=== PATIENT | female | born 1965 | race Caucasian/White ===

== ENCOUNTER 2017-06-30 10:09 | Emergency (ER) | payer OTHER ==
[~2017-06-30 10:09] MED LIST: CEPH-460 PO; CYCL10TA PO
[2017-06-30 10:24] VITALS: BP 124/69; PULSE 96; RESP 16; TEMP 98.5; O2SAT 97
[2017-06-30 11:20] LABS: AMORPHOUS SEDIMENT, URINE FEW; BACTERIA, URINE OCC /hpf; BILIRUBIN, URINE NEG (NEG); BLOOD, URINE NEG (NEG); GLUCOSE,URINE NEG (NEG); KETONE, URINE NEG (NEG); MUCUS URINE FEW /lpf (OCC); NITRITE,URINE NEG (NEG); SQUAMOUS EPITHELIAL CELL URINE 1 /hpf (0-5); URINE COLOR YELLOW (YELLW/STRAW); URINE LEUKOCYTE ESTERASE LARGE (NEG)
--- NOTE | 2017-06-30 11:30 | PD ---
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 Patient states she was treated for UTI possibly 1 month ago, but did not complete the antibiotics as they were "stolen from her". She denies sexual activity in the last month. She denies as she has had hysterectomy. She denies nausea, vomiting, or diarrhea. She denies flank pain. Patient states the pain in vaginal discharge is worsened in the last 3 days. She states it is burning and itching as well. Pain is currently 7 out of 10. She is allergic to amitriptyline, mirtazapine, and sertraline. PFSH Past Medical History Hx Anticoagulant Therapy: No Anxiety: Yes (PTSD) Depression: Yes Cardiovascular Problems: Yes (ANGINA ) Chest Pain: Yes Cerebrovascular Accident: Yes Diabetes: No Diminished Hearing: No Hepatitis: Yes (Hep C) Hypertension: Yes Kidney Stones: Yes Musculoskeletal: Yes (6 herniated disks) Psychiatric: Yes (PTSD) Reproductive: Yes (discharge and painful sexual intercourse) Respiratory: No Immunizations Current: Yes Schizophrenia: Yes (schizo-affective) Tetanus Vaccination: < 5 Years Influenza Vaccination: Yes ?: Not Menopausal: Yes : 3 Para: 1 Miscarriage: 1 : 1 Past Surgical History Abdominal Surgery: Yes (HERNIA X 3) Cholecystectomy: Yes Genitourinary Surgery: Yes (KIDNEY STONES) Gynecologic Surgery: Yes Hysterectomy: Yes (possible partial hysterectomy, patient is unsure) Other Surgery: Yes Social History Alcohol Use: No Tobacco Use: Yes (1PPD) Substance Use: Yes (morphine pills, CRACK, COCAINE, HEROINE) Allergies-Medications (Allergen,Severity, Reaction): Coded Allergies: amitriptyline (Unverified Allergy, Severe, TONGUE SWELLS, 06/30/17) sertraline (Unverified Allergy, Severe, TOUNGE SWELLING, 06/30/17) mirtazapine (Verified Allergy, Mild, Anaphylaxis, 06/30/17) Reported Meds & Prescriptions Reported Meds & Active Scripts Active No Active Prescriptions or Reported Medications Review of Systems Except as stated in HPI: all other systems reviewed are Neg General / Constitutional: No: Fever, Chills Eyes: No: Visual changes HENT: No: Headaches Cardiovascular: No: Chest Pain or Discomfort Respiratory: No: Shortness of Breath Gastrointestinal: No: Nausea, Vomiting, Diarrhea, Abdominal Pain Genitourinary: Positive: Urgency, Frequency, Dysuria, Pelvic Pain, Discharge, No: Vaginal Bleeding Musculoskeletal: No: Pain Skin: No Rash Neurologic: No: Weakness Psychiatric: No: Depression Endocrine: No: Polydipsia Hematologic/Lymphatic: No: Easy Bruising Physical Exam Narrative GENERAL: Patient appears in no obvious distress. SKIN: Warm and dry. Normal color. Normal turgor. No rash. HEAD: Atraumatic. Normocephalic. EYES: Pupils equal and round. No scleral icterus. No injection or drainage. ENT: No nasal bleeding or discharge. Mucous membranes pink and moist. Pharynx is clear. Airways patent NECK: Trachea midline. Supple CARDIOVASCULAR: Regular rate and rhythm. RESPIRATORY: No accessory muscle use. Clear to auscultation. Breath sounds equal bilaterally. GASTROINTESTINAL: Abdomen soft, mild nonspecific suprapubic tenderness, nondistended. No CVA tenderness. Hepatic and splenic margins not palpable. GENITAL/PELVIC: Pelvic exam shows no obvious lesions in the perineum or labia. Pelvic exam shows small amount of yellowish green discharge noted. Wet prep was sent to the lab. There is no bleeding or friable tissue. Pelvic exam performed with nursing staff present for fire engineer. MUSCULOSKELETAL: Extremities without clubbing, cyanosis, or edema. No obvious deformities. NEUROLOGICAL: Awake and alert. No obvious cranial nerve deficits. Motor grossly within normal limits. Five out of 5 muscle strength in the arms and legs. Normal speech. PSYCHIATRIC: Appropriate mood and affect; insight and judgment normal. Data Data Last Documented VS Vital Signs Date Time Temp Pulse Resp B/P (MAP) Pulse Ox O2 Delivery O2 Flow Rate FiO2 06/30/17 10:24 98.5 96 16 124/69 (87) 97 Orders Orders Urinalysis - C+S If Indicated (06/30/17 10:27) Gc And Chlamydia Pcr (06/30/17 10:27) Urine Culture (06/30/17 10:30) Wet Prep Profile (06/30/17 11:45) Iv Access Insert/Monitor (06/30/17 11:45) Ecg Monitoring (06/30/17 11:45) Ceftriaxone Inj (Rocephin Inj) (06/30/17 11:45) Azithromycin Powd Pack (Zithromax Powd P (06/30/17 11:45) Sodium Chlor 0.9% 1000 Ml Inj (Ns 1000 M (06/30/17 11:45) Ondansetron Inj (Zofran Inj) (06/30/17 11:45) Metronidazole (Flagyl) (06/30/17 11:45) Labs Laboratory Tests Test 06/30/17 10:30 06/30/17 11:37 Urine Color YELLOW Urine Turbidity CLOUDY Urine pH 8.0 Urine Specific [place] 1.018 Urine Protein TRACE mg/dL Urine Glucose (UA) NEG mg/dL Urine Ketones NEG mg/dL Urine Occult Blood NEG Urine Nitrite NEG Urine Bilirubin NEG Urine Urobilinogen LESS THAN 2.0 MG/DL Urine Leukocyte Esterase LARGE Urine RBC 17 /hpf Urine WBC 85 /hpf Urine Squamous Epithelial Cells 1 /hpf Urine Amorphous Sediment FEW Urine Bacteria OCC /hpf Urine Mucus FEW /lpf Microscopic Urinalysis Comment CULTURE INDICATED Clue Cells (Wet Prep) NONE SEEN Vaginal Trichomonas (Wet Prep) PRESENT Vaginal Yeast (Wet Prep) NONE SEEN MDM Medical Decision Making Medical Screen Exam Complete: Yes Emergency Medical Condition: Yes Medical Record Reviewed: Yes Differential Diagnosis Urinary tract infection. Trichomonas. STD. GC chlamydia. Narrative Course Patient appears medically stable at time of exam. Urinalysis is ordered in triage, as well as GC chlamydia. Wet prep was sent to the lab. Urinalysis shows large leukocyte esterase with 85 WBCs per high-power field, occasional bacteria. Urine culture is placed. Wet prep shows no clue cells, no yeast, but positive trichomonas. Chlamydia and gonorrhea is pending. Patient is treated with 1000 mg Rocephin IV, 2 g of azithromycin p.o., and 2 g metronidazole p.o. patient is given Zofran 4 mg IV as well. Patient will be continued on Cipro 500 mg twice daily 7 days for her urinary tract infection Patient should have her sexual partner treated for trichomonas. Patient should follow-up with local CORRECTION OFFICER to ensure clearance. Diagnosis Primary Impression: Trichomoniasis of vagina Additional Impression: Urinary tract infection Qualified Codes: N30.00 - Acute cystitis without hematuria Referrals: [facility] call for appointment Patient Instructions: Dysuria (ED), General Instructions, Trichomoniasis (ED) Additional Instructions: Wet prep shows no clue cells, no yeast, but positive trichomonas. Chlamydia and gonorrhea is pending. Patient is treated with 1000 mg Rocephin IV, 2 g of azithromycin p.o., and 2 g metronidazole p.o. patient is given Zofran 4 mg IV as well. Patient will be continued on Cipro 500 mg twice daily 7 days for her urinary tract infection Patient should have her sexual partner treated for trichomonas. Patient should follow-up with local CORRECTION OFFICER to ensure clearance. Med/Other Pt SpecificInfo: Prescription(s) given Scripts No Active Prescriptions or Reported Meds Disposition: 01 DISCHARGE HOME Condition: Stable Rogerio Duval Jun 30, 2017 11:30
[2017-06-30] MEDS ORDERED: AZITHROMYCIN PWD FOR SUSP 1 GM PACKET PO ONE (11:45)
[2017-06-30] MEDS ORDERED: ONDANSETRON HCL 4 MG/2 ML VIAL IVP ONE (11:45)
[2017-06-30] MEDS ORDERED: SODIUM CHLOR 0.9% 1000 ML INJ 1,000 ML IV ONE (11:45)
[2017-06-30] MEDS ORDERED: cefTRIAXone INJ 1,000 MG in SODIUM CHLORIDE 0.9% INJ 100 ML IV ONE (11:45)
[2017-06-30] MEDS ORDERED: metroNIDAZOLE 500 MG TAB PO ONE (11:45)
[2017-06-30] MEDS ORDERED: CIPR-9 PO (13:19)
== END 2017-06-30 13:33 | disposition home or self-care (01) ==
LOC: NEPD 10:09
DX: A59.01 Trichomonal vulvovaginitis (principal); N39.0 Urinary tract infection, site not specified; F41.9 Anxiety disorder, unspecified; F43.10 Post-traumatic stress disorder, unspecified; I10 Essential (primary) hypertension; F25.9 Schizoaffective disorder, unspecified; Z86.73 Personal history of transient ischemic attack (TIA), and cerebral infarction without residual deficits; Z86.19 Personal history of other infectious and parasitic diseases; Z87.442 Personal history of urinary calculi
CPT/HCPCS: 81001; 87086; 87210; 87491; 87591; 96365; 96375; 99284; J0696; J2405; J7030

== ENCOUNTER 2017-08-06 09:22 | Emergency (ER) | payer OTHER ==
[~2017-08-06] VITALS: Ht 160 cm; Wt 82.0 kg
[~2017-08-06 09:22] MED LIST changes: -CEPH-460 PO; +CIPR-9 PO; -CYCL10TA PO
[2017-08-06 09:35] VITALS: BP 145/73; PULSE 107; RESP 20; TEMP 98.3; O2SAT 97
[2017-08-06] MEDS ORDERED: NAPR250T4 PO (09:40)
[2017-08-06] MEDS ORDERED: [UNRECOGNIZED DRUG - REMARK] (09:40)
[2017-08-06] MEDS ORDERED: LORazepam 2 MG/ML VIAL IV PUSH ONE (10:15)
[2017-08-06] MEDS ORDERED: SODIUM CHLORID 0.9% 500 ML INJ 500 ML IV ONE (10:15)
[2017-08-06] MEDS ORDERED: SODIUM CHLORIDE 0.9% FLUSH 10 ML FLUSH IVF PRN (10:15)
[2017-08-06] MEDS ORDERED: ASPIRIN 81 MG CHEW TAB PO ONE (10:15)
--- NOTE | 2017-08-06 10:17 | PD ---
HPI Chief Complaint: Cardiac Complaint Time Seen by Provider: 09:34 Travel History International Travel<30 days: No Contact w/Intl Traveler<30days: No Traveled to known affect area: No History of Present Illness HPI The patient is a 52-year-old female who presents to the emergency department via EMS for chest pain and palpitations after smoking crack cocaine. The patient states she head 1 week of generalized malaise, fatigue, with inability to get out of the bed. The patient states she thought it might be a good idea to use crack cocaine to give her some energy. The patient states she smoked crack cocaine last night at 2 AM in a hotel room. The patient did develop palpitations, anxiety, and neck and jaw pain. She does have a history of previous crack cocaine abuse. She does state she smokes the crack cocaine, there is no IV drug abuse. The patient currently complains of intermittent chest palpitations and fluttering of the heart. She denies any acute chest pain , does note intermittent shortness of breath and mostly dry nonproductive cough. She does have a history of tobacco use. Symptoms are moderate, exacerbated after smoking crack cocaine. PFSH Past Medical History Hx Anticoagulant Therapy: No Anxiety: Yes (PTSD) Depression: Yes Cardiovascular Problems: Yes ( ) Chest Pain: Yes Cerebrovascular Accident: Yes Diabetes: No Diminished Hearing: No Hepatitis: Yes (Hep C) Hypertension: Yes Kidney Stones: Yes Musculoskeletal: Yes (6 herniated disks) Psychiatric: Yes (PTSD) Respiratory: No Immunizations Current: Yes Schizophrenia: Yes (schizo-affective) ?: Not Menopausal: Yes : 3 Para: 1 Miscarriage: 1 : 1 Past Surgical History Abdominal Surgery: Yes (HERNIA X 3) Cholecystectomy: Yes Genitourinary Surgery: Yes (KIDNEY STONES) Gynecologic Surgery: Yes Hysterectomy: Yes ( ) Other Surgery: Yes Social History Alcohol Use: No Tobacco Use: Yes (1PPD) Substance Use: Yes (cocaine) Allergies-Medications (Allergen,Severity, Reaction): Coded Allergies: amitriptyline (Unverified Allergy, Severe, TONGUE SWELLS, 06/30/17) sertraline (Unverified Allergy, Severe, TOUNGE SWELLING, 06/30/17) mirtazapine (Verified Allergy, Mild, Anaphylaxis, 06/30/17) Reported Meds & Prescriptions Reported Meds & Active Scripts Active Reported [unk depression med] BID Naproxen 250 Mg Tab 250 Mg PO BID Review of Systems Except as stated in HPI: all other systems reviewed are Neg General / Constitutional: No: Fever HENT: No: Lightheadedness Cardiovascular: Positive: Palpitations, Tachycardia, No: Chest Pain or Discomfort, Diaphoresis Respiratory: Positive: Cough, Shortness of Breath Gastrointestinal: No: Nausea, Vomiting Genitourinary: Positive: Dysuria Musculoskeletal: Positive: Weakness Neurologic: Positive: Weakness, No: Dizziness Psychiatric: Positive: Depression, Substance Abuse, Other (PTSD) Physical Exam Narrative GENERAL: Awake, alert, 52-year-old female who appears her stated age and is in no acute respiratory distress. SKIN: Focused skin assessment warm/dry. HEAD: Atraumatic. Normocephalic. EYES: Pupils equal and round. No scleral icterus. No injection or drainage. ENT: No nasal bleeding or discharge. No upper teeth visible. NECK: Trachea midline. No JVD. CARDIOVASCULAR: Regular rate and rhythm. No murmur appreciated. Heart rate in the 90s. RESPIRATORY: No accessory muscle use. Scattered wheezes. GASTROINTESTINAL: Abdomen soft, non-tender, nondistended. No rebound tenderness. MUSCULOSKELETAL: No obvious deformities. No clubbing. No cyanosis. No edema. NEUROLOGICAL: Awake and alert. No obvious cranial nerve deficits. Motor grossly within normal limits. Normal speech. Nonfocal. PSYCHIATRIC: Appropriate mood and affect; insight and judgment normal. Data Data Last Documented VS Vital Signs Date Time Temp Pulse Resp B/P (MAP) Pulse Ox O2 Delivery O2 Flow Rate FiO2 08/06/17 11:24 96 Room Air 08/06/17 11:23 77 20 118/64 (82) 08/06/17 09:35 98.3 Orders Orders Electrocardiogram (08/06/17 10:14) Ckmb (Isoenzyme) Profile (08/06/17 10:14) Complete Blood Count With Diff (08/06/17 10:14) Comprehensive Metabolic Panel (08/06/17 10:14) Magnesium (Mg) (08/06/17 10:14) Prothrombin Time / Inr (Pt) (08/06/17 10:14) Act Partial Throm Time (Ptt) (08/06/17 10:14) Troponin I (08/06/17 10:14) Lipase (08/06/17 10:14) Ecg Monitoring (08/06/17 10:14) Bilateral Bp Monitoring (08/06/17 10:14) Iv Access Insert/Monitor (08/06/17 10:14) Oximetry (08/06/17 10:14) Oxygen Administration (08/06/17 10:14) Aspirin Chew (Aspirin Chew) (08/06/17 10:15) Sodium Chloride 0.9% Flush (Ns Flush) (08/06/17 10:15) Sodium Chlorid 0.9% 500 Ml Inj (Ns 500 M (08/06/17 10:15) Chest, Pa & Lat (08/06/17 10:14) Lorazepam Inj (Ativan Inj) (08/06/17 10:15) Urinalysis - C+S If Indicated (08/06/17 10:17) Ceftriaxone Inj (Rocephin Inj) (08/06/17 11:30) Azithromycin (Zithromax) (08/06/17 11:30) Troponin I (08/06/17 13:30) Labs Laboratory Tests Test 08/06/17 10:30 08/06/17 13:15 White Blood Count 15.8 TH/MM3 Red Blood Count 4.62 MIL/MM3 Hemoglobin 14.6 GM/DL Hematocrit 40.4 % Mean Corpuscular Volume 87.3 FL Mean Corpuscular Hemoglobin 31.5 PG Mean Corpuscular Hemoglobin Concent 36.1 % Red Cell Distribution Width 12.9 % Platelet Count 207 TH/MM3 Mean Platelet Volume 7.1 FL Neutrophils (%) (Auto) 83.0 % Lymphocytes (%) (Auto) 12.6 % Monocytes (%) (Auto) 3.8 % Eosinophils (%) (Auto) 0.3 % Basophils (%) (Auto) 0.3 % Neutrophils # (Auto) 13.1 TH/MM3 Lymphocytes # (Auto) 2.0 TH/MM3 Monocytes # (Auto) 0.6 TH/MM3 Eosinophils # (Auto) 0.0 TH/MM3 Basophils # (Auto) 0.0 TH/MM3 CBC Comment AUTO DIFF Differential Comment AUTO DIFF CONFIRMED Prothrombin Time 10.3 SEC Prothromb Time International Ratio 1.0 RATIO Activated Partial Thromboplast Time 24.0 SEC Urine Color LIGHT-YELLOW Urine Turbidity CLEAR Urine pH 7.0 Urine Specific [place] 1.005 Urine Protein NEG mg/dL Urine Glucose (UA) NEG mg/dL Urine Ketones NEG mg/dL Urine Occult Blood NEG Urine Nitrite NEG Urine Bilirubin NEG Urine Urobilinogen LESS THAN 2.0 MG/DL Urine Leukocyte Esterase LARGE Urine RBC 2 /hpf Urine WBC 7 /hpf Urine Squamous Epithelial Cells 3 /hpf Urine Bacteria RARE /hpf Microscopic Urinalysis Comment CULT NOT INDICATED Blood Urea Nitrogen 17 MG/DL Creatinine 0.79 MG/DL Random Glucose 114 MG/DL Total Protein 7.7 GM/DL Albumin 4.3 GM/DL Calcium Level 9.2 MG/DL Magnesium Level 2.2 MG/DL Alkaline Phosphatase 69 U/L Aspartate Amino Transf (AST/SGOT) 12 U/L Alanine Aminotransferase (ALT/SGPT) 20 U/L Total Bilirubin 0.5 MG/DL Sodium Level 142 MEQ/L Potassium Level 3.8 MEQ/L Chloride Level 108 MEQ/L Carbon Dioxide Level 26.1 MEQ/L Anion Gap 8 MEQ/L Estimat Glomerular Filtration Rate 76 ML/MIN Total Creatine Kinase 86 U/L Troponin I LESS THAN 0.02 NG/ML LESS THAN 0.02 NG/ML Lipase 181 U/L [facility] Medical Decision Making Medical Screen Exam Complete: Yes Emergency Medical Condition: Yes Medical Record Reviewed: Yes Interpretation(s) EKG reveals normal sinus rhythm with a rate 87. No ischemic changes or ectopy noted. Last Impressions Chest X-Ray 08/06/17 1014 Signed Impressions: Service Date/Time: Tuesday, August 06, 2017 10:31 - CONCLUSION: No acute disease. Alpesh Jain MD FACR Laboratory Tests Test 08/06/17 10:30 08/06/17 13:15 White Blood Count 15.8 TH/MM3 Red Blood Count 4.62 MIL/MM3 Hemoglobin 14.6 GM/DL Hematocrit 40.4 % Mean Corpuscular Volume 87.3 FL Mean Corpuscular Hemoglobin 31.5 PG Mean Corpuscular Hemoglobin Concent 36.1 % Red Cell Distribution Width 12.9 % Platelet Count 207 TH/MM3 Mean Platelet Volume 7.1 FL Neutrophils (%) (Auto) 83.0 % Lymphocytes (%) (Auto) 12.6 % Monocytes (%) (Auto) 3.8 % Eosinophils (%) (Auto) 0.3 % Basophils (%) (Auto) 0.3 % Neutrophils # (Auto) 13.1 TH/MM3 Lymphocytes # (Auto) 2.0 TH/MM3 Monocytes # (Auto) 0.6 TH/MM3 Eosinophils # (Auto) 0.0 TH/MM3 Basophils # (Auto) 0.0 TH/MM3 CBC Comment AUTO DIFF Differential Comment AUTO DIFF CONFIRMED Prothrombin Time 10.3 SEC Prothromb Time International Ratio 1.0 RATIO Activated Partial Thromboplast Time 24.0 SEC Urine Color LIGHT-YELLOW Urine Turbidity CLEAR Urine pH 7.0 Urine Specific [place] 1.005 Urine Protein NEG mg/dL Urine Glucose (UA) NEG mg/dL Urine Ketones NEG mg/dL Urine Occult Blood NEG Urine Nitrite NEG Urine Bilirubin NEG Urine Urobilinogen LESS THAN 2.0 MG/DL Urine Leukocyte Esterase LARGE Urine RBC 2 /hpf Urine WBC 7 /hpf Urine Squamous Epithelial Cells 3 /hpf Urine Bacteria RARE /hpf Microscopic Urinalysis Comment CULT NOT INDICATED Blood Urea Nitrogen 17 MG/DL Creatinine 0.79 MG/DL Random Glucose 114 MG/DL Total Protein 7.7 GM/DL Albumin 4.3 GM/DL Calcium Level 9.2 MG/DL Magnesium Level 2.2 MG/DL Alkaline Phosphatase 69 U/L Aspartate Amino Transf (AST/SGOT) 12 U/L Alanine Aminotransferase (ALT/SGPT) 20 U/L Total Bilirubin 0.5 MG/DL Sodium Level 142 MEQ/L Potassium Level 3.8 MEQ/L Chloride Level 108 MEQ/L Carbon Dioxide Level 26.1 MEQ/L Anion Gap 8 MEQ/L Estimat Glomerular Filtration Rate 76 ML/MIN Total Creatine Kinase 86 U/L Troponin I LESS THAN 0.02 NG/ML LESS THAN 0.02 NG/ML Lipase 181 U/L Differential Diagnosis Differential diagnosis includes crack cocaine use, sympathomimetic crisis, ACS, pneumothorax, arrhythmia, palpitations, PTSD, anxiety, bronchitis, pneumonia, pulmonary embolism, electrolyte abnormality. Narrative Course IV was established, labs were drawn and sent, and the patient was placed on cardiac telemetry monitoring and continuous pulse oximetry monitoring. EKG was ordered and interpreted. Chest x-ray was obtained. The patient was administered aspirin 81 mg orally and Ativan 1 mg intravenously with IV fluids. UA was sent to lab. The patient's initial troponin was less than 0.02, therefore, second troponin level was ordered at 3 hour level. Second troponin is less than 0.02. The patient's heart rate came down in the 60s, she appeared to be resting comfortably when I walked in the patient's room she was sleeping comfortably on several different occasions. UA does reveal WBCs and bacteria, patient was administered Rocephin and Zithromax to cover for gonorrhea and chlamydia and will be discharged home on Bactrim twice a day for 3 days. She is advised to follow-up with a primary physician. She is also advised to stop using crack cocaine. Diagnosis Primary Impression: Cocaine abuse Additional Impressions: Palpitations Generalized weakness UTI (urinary tract infection) Qualified Codes: N30.00 - Acute cystitis without hematuria Patient Instructions: General Instructions Additional Instructions: Please provide the patient a copy of her labs at discharge. Medication as directed. Stop using crack cocaine. Med/Other Pt SpecificInfo: Prescription(s) given Scripts Sulfamethoxazole-Trimethoprim (Bactrim DS) 800-160 Mg Tab 1 TAB PO BID for Infection, #6 TAB 0 Refills Prov: Niranjan Payton MD 08/06/17 Disposition: 01 DISCHARGE HOME Condition: Stable Niranjan Payton MD Aug 06, 2017 10:17
--- NOTE | 2017-08-06 10:53 | RADRPT ---
EXAM DATE/TIME: 08/06/2017 10:31 [facility] COMPARISON: No previous studies available for comparison. INDICATIONS : Chest pain and shortness of breath. MEDICAL HISTORY : Cardiovascular disease. SURGICAL HISTORY : None. ENCOUNTER: Initial ACUITY: 1 day PAIN SCORE: 4/10 LOCATION: chest FINDINGS: PA and lateral views of the chest demonstrate the lungs to be symmetrically aerated without evidence of mass, infiltrate or effusion. The cardiomediastinal contours are unremarkable. Osseous structure s are intact. CONCLUSION: No acute disease. Alpesh Jain MD FACR on August 06, 2017 at 10:52 Board Certified Radiologist. This report was verified electronically.
[2017-08-06 10:55] LABS: AUTOMATED NEUTROPHIL # 13.1 TH/MM3 (1.8-7.7); BASOPHIL % 0.3 % (0.0-2.0); EOSINOPHIL % 0.3 % (0.0-4.0); HEMATOCRIT 40.4 % (35.0-46.0); HEMOGLOBIN 14.6 GM/DL (11.6-15.3); LYMPH % 12.6 % (9.0-44.0); MEAN CELL VOLUME 87.3 FL (80.0-100.0); MEAN CORPUSCULAR HEMOGLOBIN 31.5 PG (27.0-34.0); MEAN PLATELET VOLUME 7.1 FL (7.0-11.0); MONO % 3.8 % (0.0-8.0); MONOCYTE # 0.6 TH/MM3 (0-0.9); PLATELET COUNT 207 TH/MM3 (150-450); RED BLOOD COUNT 4.62 MIL/MM3 (4.00-5.30); RED CELL DISTRIBUTION WIDTH 12.9 % (11.6-17.2); WHITE BLOOD COUNT 15.8 TH/MM3 (4.0-11.0)
[2017-08-06 10:57] LABS: MEAN CORPUSCULAR HGB CONC 36.1 % (32.0-36.0)
[2017-08-06 11:04] LABS: PROTHROMBIN TIME - PATIENT 10.3 SEC (9.8-11.6)
[2017-08-06 11:12] LABS: ALBUMIN 4.3 GM/DL (3.4-5.0); ALT (GPT) 20 U/L (10-53); AST (GOT) 12 U/L (15-37); BICARBONATE 26.1 MEQ/L (21.0-32.0); BLOOD UREA NITROGEN 17 MG/DL (7-18); CALCIUM 9.2 MG/DL (8.5-10.1); CHLORIDE 108 MEQ/L (98-107); CREATININE 0.79 MG/DL (0.50-1.00); GLOMERULAR FILTRATION RATE 76 ML/MIN (>89); GLUCOSE,RANDOM 114 MG/DL (74-106); MAGNESIUM 2.2 MG/DL (1.5-2.5); SODIUM (NA) 142 MEQ/L (136-145)
[2017-08-06 11:14] LABS: BACTERIA, URINE RARE /hpf; BILIRUBIN, URINE NEG (NEG); BLOOD, URINE NEG (NEG); GLUCOSE,URINE NEG (NEG); KETONE, URINE NEG (NEG); NITRITE,URINE NEG (NEG); SQUAMOUS EPITHELIAL CELL URINE 3 /hpf (0-5); URINE COLOR LIGHT-YELLOW (YELLW/STRAW); URINE LEUKOCYTE ESTERASE LARGE (NEG)
[2017-08-06 11:16] LABS: ALKALINE PHOSPHATASE 69 U/L (45-117); TOTAL BILIRUBIN ADULT 0.5 MG/DL (0.2-1.0); TOTAL PROTEIN 7.7 GM/DL (6.4-8.2); TROPONIN I LESS THAN 0.02 NG/ML (0.02-0.05)
[2017-08-06 11:23] VITALS: BP 118/64; PULSE 77; RESP 20; O2SAT 95
[2017-08-06] MEDS ORDERED: AZITHROMYCIN 250 MG TAB PO ONE (11:30)
[2017-08-06] MEDS ORDERED: cefTRIAXone INJ 1,000 MG in SODIUM CHLORIDE 0.9% INJ 100 ML IV ONE (11:30)
[2017-08-06] MEDS ORDERED: BACT800T5 PO (14:40)
--- NOTE | 2017-08-06 16:47 | EKG ---
Date Performed: 08/06/2017 Time Performed: 09:46:37 PTAGE: 52 years EKG: Sinus rhythm Since the PREVIOUS TRACING , no significant change noted NORMAL ECG PREVIOUS TRACING 02/11/2016 @ 23.06 DOCTOR: Romana Farias Interpretating Date/Time 08/06/2017 16:45:41
== END 2017-08-06 16:14 | disposition home or self-care (01) ==
LOC: NEPC 09:22
DX: F14.10 Cocaine abuse, uncomplicated (principal); R00.2 Palpitations; R53.1 Weakness; N30.00 Acute cystitis without hematuria; R06.02 Shortness of breath; F17.210 Nicotine dependence, cigarettes, uncomplicated; F32.9 Major depressive disorder, single episode, unspecified; Z79.899 Other long term (current) drug therapy
CPT/HCPCS: 71046; 80053; 81001; 82550; 83690; 83735; 84484; 85025; 85610; 85730; 93005; 96361; 96374; 96375; 99285; J0696; J2060; J7040

== ENCOUNTER 2017-09-14 16:36 | Emergency (ER) | payer OTHER, MEDICAID ==
[~2017-09-14] VITALS: Ht 170.2 cm; Wt 85.0 kg
[~2017-09-14 16:36] MED LIST changes: +BACT800T5 PO; -CIPR-9 PO; +NAPR250T4 PO; +[UNRECOGNIZED DRUG - REMARK]
[2017-09-14 16:40] VITALS: BP 100/60; PULSE 115; RESP 19; TEMP 98.7; O2SAT 96
[2017-09-14] MEDS ORDERED: DULO20 PO (17:09)
[2017-09-14] MEDS ORDERED: SODIUM CHLOR 0.9% 1000 ML INJ 1,000 ML IV SCH (17:19)
--- NOTE | 2017-09-14 17:27 | PD ---
HPI Chief Complaint: GI Complaint Time Seen by Provider: 17:13 Travel History International Travel<30 days: No Contact w/Intl Traveler<30days: No Traveled to known affect area: No History of Present Illness HPI 52-year-old female complains of abdominal pain and diarrhea. Patient states that she started having diarrhea 3 days ago. Patient states that she had mucus in the stool but no blood. Patient states that she is not having cramping pain sharp pain localized to left lower quadrant of the abdomen for the past several days also. Patient denies any pain radiation. Patient denies any nausea vomiting. Patient denies any dysuria frequency. Patient denies any vaginal discharge or bleeding. Patient denies any fever chills. Patient denies any back pain. Patient has history of hypertension, hyperlipidemia. Patient is a smoker. Patient denies any alcohol or illicit drug abuse. Patient has history chronic back pain and has been taking hydrocodone as needed for pain. Patient also has history of PTSD, depression. Patient states that she was walking to postop today and started having bowel incontinence. Patient states that she was near passing out. Patient states that she fell and had abrasion to left knee. PFSH Past Medical History Hx Anticoagulant Therapy: No Anxiety: Yes (PTSD) Depression: Yes Cardiovascular Problems: Yes ( ) Chest Pain: Yes Cerebrovascular Accident: Yes Diabetes: No Diminished Hearing: No Hepatitis: Yes (Hep C) Hypertension: Yes Kidney Stones: Yes Musculoskeletal: Yes (6 herniated disks) Psychiatric: Yes (PTSD) Respiratory: No Immunizations Current: Yes Schizophrenia: Yes (schizo-affective) Tetanus Vaccination: < 5 Years ?: Not Menopausal: Yes : 3 Para: 1 Miscarriage: 1 : 1 Past Surgical History Abdominal Surgery: Yes (HERNIA X 3) Cholecystectomy: Yes Genitourinary Surgery: Yes (KIDNEY STONES) Gynecologic Surgery: Yes Hysterectomy: Yes ( PARTIAL) Other Surgery: Yes Social History Alcohol Use: No Tobacco Use: Yes (1PPD) Substance Use: No (DENIES; HX OF COCAINE USE) Allergies-Medications (Allergen,Severity, Reaction): Coded Allergies: amitriptyline (Unverified Allergy, Severe, TONGUE SWELLS, 09/14/17) olanzapine (Verified Allergy, Severe, Anaphylaxis, 09/14/17) sertraline (Unverified Allergy, Severe, TOUNGE SWELLING, 09/14/17) mirtazapine (Verified Allergy, Mild, Anaphylaxis, 09/14/17) Reported Meds & Prescriptions Reported Meds & Active Scripts Active Reported Cymbalta DR (Duloxetine HCl) 20 Mg Capdr 20 Mg PO DAILY Review of Systems General / Constitutional: No: Fever Eyes: No: Visual changes HENT: No: Headaches Cardiovascular: No: Chest Pain or Discomfort Respiratory: No: Shortness of Breath Gastrointestinal: Positive: Diarrhea, Abdominal Pain Genitourinary: No: Dysuria Musculoskeletal: No: Pain Skin: No Rash Neurologic: No: Weakness Psychiatric: No: Depression Endocrine: No: Polydipsia Hematologic/Lymphatic: No: Easy Bruising Physical Exam Narrative GENERAL: Well-nourished, well-developed patient. SKIN: Focused skin assessment warm/dry. HEAD: Normocephalic. EYES: No scleral icterus. No injection or drainage. NECK: Supple, trachea midline. No JVD or lymphadenopathy. CARDIOVASCULAR: Regular rate and rhythm without murmurs, gallops, or rubs. RESPIRATORY: Breath sounds equal bilaterally. No accessory muscle use. GASTROINTESTINAL: Abdomen soft, nondistended. Patient has moderate tenderness on palpation left lower quadrant of the abdomen. No rebound tenderness. No mass. MUSCULOSKELETAL: No cyanosis, or edema. BACK: Nontender without obvious deformity. No CVA tenderness. Neurologic exam normal. Data Data Last Documented VS Vital Signs Date Time Temp Pulse Resp B/P (MAP) Pulse Ox O2 Delivery O2 Flow Rate FiO2 09/14/17 16:40 98.7 115 19 100/60 (73) 96 Orders Orders Complete Blood Count With Diff (09/14/17 17:19) Comprehensive Metabolic Panel (09/14/17 17:19) Lipase (09/14/17 17:19) Prothrombin Time / Inr (Pt) (09/14/17 17:19) Act Partial Throm Time (Ptt) (09/14/17 17:19) Urinalysis - C+S If Indicated (09/14/17 17:19) Ct Abd/Pel W Iv Contrast(Rout) (09/14/17 17:19) Iv Access Insert/Monitor (09/14/17 17:19) Ecg Monitoring (09/14/17 17:19) Oximetry (09/14/17 17:19) Sodium Chlor 0.9% 1000 Ml Inj (Ns 1000 M (09/14/17 17:19) Sodium Chloride 0.9% Flush (Ns Flush) (09/14/17 17:30) MDM Medical Decision Making Medical Screen Exam Complete: Yes Emergency Medical Condition: Yes Differential Diagnosis Differential diagnosis including gastroenteritis, dehydration, electrolyte imbalance, colitis Narrative Course 52-year-old female with left lower quadrant abdominal pain and diarrhea. Normal saline solution 1 L IV bolus. David Lorenzo MD September 14, 2017 17:27
[2017-09-14] MEDS ORDERED: SODIUM CHLORIDE 0.9% FLUSH 10 ML FLUSH IV FLUSH PRN (17:30)
[2017-09-14] MEDS ORDERED: PRAZ1CAP PO (17:43)
[2017-09-14] MEDS ORDERED: VENTAER INH (17:43)
[2017-09-14] MEDS ORDERED: METR250 PO (17:43)
[2017-09-14] MEDS ORDERED: HYDR-3580 PO (17:43)
[2017-09-14 17:45] VITALS: O2SAT 97
[2017-09-14 17:54] LABS: AUTOMATED NEUTROPHIL # 7.1 TH/MM3 (1.8-7.7); BASOPHIL # 0.1 TH/MM3 (0-0.2); BASOPHIL % 0.6 % (0.0-2.0); EOSINOPHIL # 0.1 TH/MM3 (0-0.4); HEMATOCRIT 40.1 % (35.0-46.0); HEMOGLOBIN 14.3 GM/DL (11.6-15.3); LYMPH % 16.7 % (9.0-44.0); LYMPHOCYTE # 1.6 TH/MM3 (1.0-4.8); MEAN CELL VOLUME 89.7 FL (80.0-100.0); MEAN CORPUSCULAR HEMOGLOBIN 31.9 PG (27.0-34.0); MEAN CORPUSCULAR HGB CONC 35.5 % (32.0-36.0); MEAN PLATELET VOLUME 7.2 FL (7.0-11.0); MONO % 5.7 % (0.0-8.0); MONOCYTE # 0.5 TH/MM3 (0-0.9); PLATELET COUNT 192 TH/MM3 (150-450); RED BLOOD COUNT 4.48 MIL/MM3 (4.00-5.30); RED CELL DISTRIBUTION WIDTH 13.1 % (11.6-17.2); WHITE BLOOD COUNT 9.3 TH/MM3 (4.0-11.0)
[2017-09-14 18:05] LABS: ALKALINE PHOSPHATASE 72 U/L (45-117); TOTAL BILIRUBIN ADULT 0.3 MG/DL (0.2-1.0)
[2017-09-14 18:07] LABS: ALBUMIN 3.8 GM/DL (3.4-5.0); ALT (GPT) 22 U/L (10-53); AST (GOT) 12 U/L (15-37); BICARBONATE 23.2 MEQ/L (21.0-32.0); BLOOD UREA NITROGEN 20 MG/DL (7-18); CALCIUM 8.8 MG/DL (8.5-10.1); CHLORIDE 107 MEQ/L (98-107); CREATININE 1.41 MG/DL (0.50-1.00); GLOMERULAR FILTRATION RATE 39 ML/MIN (>89); GLUCOSE,RANDOM 169 MG/DL (74-106); SODIUM (NA) 142 MEQ/L (136-145)
[2017-09-14 18:30] VITALS: BP 124/66; PULSE 88; RESP 16; O2SAT 98
[2017-09-14] MEDS ORDERED: IODIXANOL 320 MG/ML 10 ML VIAL (for Rad CT) IVCONTRAST ONE (19:26)
--- NOTE | 2017-09-14 19:35 | RADRPT ---
EXAM DATE: 09/14/2017 7:24 PM EDT AGE/SEX: 52 years / Female INDICATIONS: Abdominal pain, diarrhea CLINICAL DATA: This is the patient's initial encounter. Patient reports that signs and symptoms have been present for 1 week and indicates a pain score of 4/10. MEDICAL/SURGICAL HISTORY: Cardiovascular disease. Cerebrovascular disease. Hypertension. Kid makayla stones, Hepatitis c Hysterectomy. Cholecystectomy. ORAL CONTRAST: No oral contrast ingested. RADIATION DOSE: 12.18 CTDI (mGy) COMPARISON: [facility] – [place] ABDOMEN & PELVIS W CONTRAST, 05/29/2017. [facility] [place] ABDOMEN & PELVIS W/O CONTRAS T, 11/06/2015. . TECHNIQUE: Multiple contiguous axial images were obtained through the abdomen and pelvis following b olus infusion of 45 ml Visipaque 320 (iodixanol) nonionic water-soluble contrast as a single exam d ose. No oral contrast ingested. Using automated exposure control and adjustment of the mA and/or kV according to patient size, the radiation dose was kept as low as reasonably achievable to obtain opti mal diagnostic quality images. Lower Lungs: The visualized lower lungs are clear. Liver: The liver has a homogeneous density without space-occupying lesion. There is no dilation of th e biliary tree. No calcified gallstones. Spleen: Homogeneous density without enlargement. Pancreas: Unremarkable without mass or calcification. Kidneys: No calcified stones. Normal in size and shape. No evidence of mass or hydronephrosis. Adrenal Glands: Unremarkable. Aorta: The aorta and proximal iliac vessels are grossly unremarkable without aneurysmal dilation. Bowel/Mesentery: No dilated loops of small or large bowel. A few scattered small diverticula in the sigmoid colon, stable from prior. No evidence of free fluid. Abdominal Wall: There is a discontinuity of the left lower quadrant anterior abdominal wall with sev eral loops of small bowel extending into the defect. The configuration and appearance of this ventral wall hernia is similar to prior CT scans dating back to October 2015. Retroperitoneum: No evidence of adenopathy in the retrocrural, para-aortic, or deep pelvic regions. Bladder: Contours are smooth. Reproductive Organs: No abnormal masses or calcifications seen. Inguinal: The inguinal region is unremarkable without evidence of adenopathy. Bony Structures: Advanced degenerative changes in the posterior elements of the lower lumbar spine, stable from prior. CONCLUSION: 1. No acute findings. 2. Stable appearance to left lower quadrant ventral hernia containing loops of small bowel. Electronically signed by: Dominick Parra MD 09/14/2017 7:34 PM EDT
--- NOTE | 2017-09-14 19:41 | PD ---
Physical Exam Narrative Received sign out to follow up with CT a/p. 52yo F with schizoaffective disorder, bipolar disorder, chronic pain here with c /o left lower abdominal pain and diarrhea for 3 days. Pt said she went to her doctor yesterday and was given flagyl. Denies any fever, vomiting. Mild nausea. Labs reviewed, no leukocytosis. H/H normal. BUN/creatinine mildly elevated from baseline. Lipase normal. Pt given NS IVF and tolerating PO now. Pt reevaluated at bedside and feels better. CT a/p showed no acute finding. Stable left lower abdominal ventral hernia with small bowel. Pt's abdomen is soft, nondistended and currently nontender to palpation. No rebound tenderness or guarding. Pt's urinalysis is still pending but pt wants to leave now since her ride is here. Understands I dont have to results. Return precautions given. Data Data Last Documented VS Vital Signs Date Time Temp Pulse Resp B/P (MAP) Pulse Ox O2 Delivery O2 Flow Rate FiO2 09/14/17 20:43 09/14/17 18:30 88 16 98 09/14/17 17:45 Room Air 09/14/17 16:40 98.7 Orders Orders Complete Blood Count With Diff (09/14/17 17:19) Comprehensive Metabolic Panel (09/14/17 17:19) Lipase (09/14/17 17:19) Prothrombin Time / Inr (Pt) (09/14/17 17:19) Act Partial Throm Time (Ptt) (09/14/17 17:19) Urinalysis - C+S If Indicated (09/14/17 17:19) Ct Abd/Pel W Iv Contrast(Rout) (09/14/17 17:19) Iv Access Insert/Monitor (09/14/17 17:19) Ecg Monitoring (09/14/17 17:19) Oximetry (09/14/17 17:19) Sodium Chlor 0.9% 1000 Ml Inj (Ns 1000 M (09/14/17 17:19) Sodium Chloride 0.9% Flush (Ns Flush) (09/14/17 17:30) Electrocardiogram (09/14/17 17:08) Iodixanol 320 Inj (Rad Ct) (Visipaque 32 (09/14/17 19:26) Ondansetron Odt (Zofran Odt) (09/14/17 19:45) Ketorolac Inj (Toradol Inj) (09/14/17 19:45) Ed Discharge Order (09/14/17 20:32) Labs Laboratory Tests Test 09/14/17 17:30 09/14/17 20:05 White Blood Count 9.3 TH/MM3 Red Blood Count 4.48 MIL/MM3 Hemoglobin 14.3 GM/DL Hematocrit 40.1 % Mean Corpuscular Volume 89.7 FL Mean Corpuscular Hemoglobin 31.9 PG Mean Corpuscular Hemoglobin Concent 35.5 % Red Cell Distribution Width 13.1 % Platelet Count 192 TH/MM3 Mean Platelet Volume 7.2 FL Neutrophils (%) (Auto) 76.0 % Lymphocytes (%) (Auto) 16.7 % Monocytes (%) (Auto) 5.7 % Eosinophils (%) (Auto) 1.0 % Basophils (%) (Auto) 0.6 % Neutrophils # (Auto) 7.1 TH/MM3 Lymphocytes # (Auto) 1.6 TH/MM3 Monocytes # (Auto) 0.5 TH/MM3 Eosinophils # (Auto) 0.1 TH/MM3 Basophils # (Auto) 0.1 TH/MM3 CBC Comment DIFF FINAL Differential Comment Prothrombin Time 10.0 SEC Prothromb Time International Ratio 1.0 RATIO Activated Partial Thromboplast Time 19.1 SEC Blood Urea Nitrogen 20 MG/DL Creatinine 1.41 MG/DL Random Glucose 169 MG/DL Total Protein 7.0 GM/DL Albumin 3.8 GM/DL Calcium Level 8.8 MG/DL Alkaline Phosphatase 72 U/L Aspartate Amino Transf (AST/SGOT) 12 U/L Alanine Aminotransferase (ALT/SGPT) 22 U/L Total Bilirubin 0.3 MG/DL Sodium Level 142 MEQ/L Potassium Level 3.6 MEQ/L Chloride Level 107 MEQ/L Carbon Dioxide Level 23.2 MEQ/L Anion Gap 12 MEQ/L Estimat Glomerular Filtration Rate 39 ML/MIN Lipase 229 U/L Urine Color YELLOW Urine Turbidity HAZY Urine pH 5.5 Urine Specific [place] GREATER THAN 1.050 Urine Protein 30 mg/dL Urine Glucose (UA) NEG mg/dL Urine Ketones NEG mg/dL Urine Occult Blood NEG Urine Nitrite NEG Urine Bilirubin NEG Urine Urobilinogen LESS THAN 2.0 MG/DL Urine Leukocyte Esterase MOD Urine RBC 18 /hpf Urine WBC 3 /hpf Urine Squamous Epithelial Cells 15 /hpf Urine Mucus MANY /lpf Microscopic Urinalysis Comment CULT NOT INDICATED MDM Supervised Visit with RAMONA: No Interpretation(s) EKG: NSR 99bpm. Normal axis. No ST segment elevation or depression. Diagnosis Primary Impression: Gastroenteritis Additional Impressions: Dehydration Ventral hernia Qualified Codes: K43.9 - Ventral hernia without obstruction or gangrene Referrals: Kt Dinh MD Patient Instructions: General Instructions Departure Forms: Tests/Procedures Additional Instruction: Please follow up with general surgery if you want surgical intervention for your ventral hernia. Please follow up with your primary care physician in 2-3 days. Return to the ED if symptoms worsen. Med/Other Pt SpecificInfo: Prescription(s) given Scripts Acetaminophen (Tylenol) 325 Mg Tab 650 MG PO Q6H Y for PAIN SCALE 1 TO 4, #20 TAB 0 Refills Prov: Kristie Maya DO 09/14/17 Disposition: 01 DISCHARGE HOME Condition: Stable Kristie Maya DO September 14, 2017 19:41
[2017-09-14] MEDS ORDERED: KETOROLAC TROMETHAMINE 30 MG/ML (IVP) VIAL IV PUSH ONE (19:45)
[2017-09-14] MEDS ORDERED: ONDANSETRON ODT 4 MG TAB PO ONE (19:45)
[2017-09-14] MEDS ORDERED: TYLE325T PO (19:56)
[2017-09-14 20:38] LABS: BILIRUBIN, URINE NEG (NEG); BLOOD, URINE NEG (NEG); GLUCOSE,URINE NEG (NEG); KETONE, URINE NEG (NEG); MUCUS URINE MANY /lpf (OCC); NITRITE,URINE NEG (NEG); PH, URINE 5.5 (5.0-8.5); SQUAMOUS EPITHELIAL CELL URINE 15 /hpf (0-5); URINE COLOR YELLOW (YELLW/STRAW); URINE LEUKOCYTE ESTERASE MOD (NEG)
--- NOTE | 2017-09-16 08:23 | EKG ---
Date Performed: 09/14/2017 Time Performed: 17:08:08 PTAGE: 52 years EKG: Sinus rhythm WITH SHORT DE INTERVAL POSSIBLE LEFT ATRIAL ENLARGEMENT BORDERLINE ECG INTERPRETATION BASED ON A DEF BENSON AGE OF 39 YEARS NO PREVIOUS TRACING DOCTOR: Mary Dalton Interpretating Date/Time 09/16/2017 08:16:31
== END 2017-09-14 20:44 | disposition home or self-care (01) ==
LOC: NEPC 16:36
DX: K52.9 Noninfective gastroenteritis and colitis, unspecified (principal); E86.0 Dehydration; K43.9 Ventral hernia without obstruction or gangrene; F17.210 Nicotine dependence, cigarettes, uncomplicated
CPT/HCPCS: 74177; 80053; 81001; 83690; 85025; 85610; 85730; 93005; 96361; 96374; 99285; J1885; J7030; Q9967